=== PATIENT | female | born 1980 | race African-American/Black ===

== ENCOUNTER 2017-02-14 21:00 | Emergency (ER) | payer MEDICAID ==
[~2017-02-14] VITALS: Ht 162.6 cm; Wt 54.4 kg
[2017-02-14 21:15] VITALS: BP 109/72
[2017-02-15] MEDS ORDERED: ONDANSETRON ODT 4 MG TAB PO ONE (00:30)
[2017-02-15] MEDS ORDERED: KETOROLAC TROMETH 60MG/2ML VIAL IM ONE (00:30)
== END 2017-02-15 00:44 | disposition home or self-care (01) ==
LOC: ER 21:07
DX: G43.909 Migraine, unspecified, not intractable, without status migrainosus (principal); R42 Dizziness and giddiness
CPT/HCPCS: 70450; 81025; J1885; Q0162

== ENCOUNTER 2017-03-01 04:29 | Emergency (ER) | payer MEDICAID ==
[~2017-03-01] VITALS: Ht 162.6 cm; Wt 39.5 kg
[2017-03-01 05:10] VITALS: BP 115/77
[2017-03-01] MEDS ORDERED: HYDROcodone-ACET 10/325MG TAB PO ONE (05:15)
== END 2017-03-01 05:40 | disposition home or self-care (01) ==
LOC: ER 04:32 → EDBD 04:32 → ER 05:39
DX: G43.909 Migraine, unspecified, not intractable, without status migrainosus (principal); Z76.0 Encounter for issue of repeat prescription